=== PATIENT | male | born 1950 | race American Indian/Alaskan Native ===

== ENCOUNTER 2019-07-28 16:13 | Emergency (ER) | payer OTHER, MEDICARE ==
[2019-07-28] MEDS ORDERED: diphenhydrAMINE 25 MG CAP PO ONE (20:01)
[2019-07-28] MEDS ORDERED: FAMOTIDINE 20 MG TAB PO ONE (20:01)
[2019-07-28] MEDS ORDERED: predniSONE 20 MG TAB PO ONE (20:01)
--- NOTE | 2019-07-28 20:11 | Emergency Department Report ---
ED Rash HPI - HPI Chief Complaint: Skin Rash Stated Complaint: RASH Time Seen by Provider: 07/28/19 20:00 Duration: 1 month intermittent Location: Neck, Upper Extremities, Lower Extremities Suspected Cause: Unknown Rash Symptoms: Yes Itching, No Facial Swelling, No Tongue/Oral Swelling, No Breathing Difficulties, No Choking Sensation, No Wheezing/Dyspnea, No Peeling, N o Blistering, No Fever, No Lightheaded, No Malaise, No Myalgias Severity: mild ED Review of Systems ROS: Stated complaint: RASH Other details as noted in HPI Constitutional: denies: chills, fever Eyes: denies: eye pain, eye discharge, vision change ENT: denies: ear pain, throat pain Respiratory: denies: cough, shortness of breath, wheezing Cardiovascular: denies: chest pain, palpitations Endocrine: no symptoms reported Gastrointestinal: denies: abdominal pain, nausea, vomiting, diarrhea Genitourinary: as per HPI Musculoskeletal: denies: back pain, joint swelling, arthralgia Skin: rash, pruritus. denies: lesions Neurological: denies: headache, weakness, paresthesias Psychiatric: denies: anxiety, depression Hematological/Lymphatic: denies: easy bleeding, easy bruising ED Past Medical Hx - Past Medical History Previous Medical History?: Yes Hx Hypertension: Yes Hx CVA: Yes Hx Congestive Heart Failure: No Hx Diabetes: No Hx Renal Disease: No Hx Arthritis: No Hx Seizures: No Hx Asthma: No Hx COPD: No Hx HIV: No - Surgical History Past Surgical History?: Yes Hx Pacemaker: No Additional Surgical History: secretion duct surgery - Social History Smoking Status: Never Smoker - Medications Home Medications: Home Medications Medication Instructions Recorded Confirmed Last Taken Type Famotidine [Pepcid] 20 mg PO BID 7 Days #14 tablet 07/28/19 Unknown Rx Triamcinolone Aceton 0.1% (Nf) 1 applic TP BID #1 tube 07/28/19 Unknown Rx [Kenalog (NF)] amLODIPine 5 mg PO DAILY #30 tab 07/28/19 Unknown Rx diphenhydrAMINE [Benadryl CAP] 25 mg PO Q8HR PRN #30 capsule 07/28/19 Unknown Rx predniSONE [Deltasone] 40 mg PO QDAY 5 Days #10 tab 07/28/19 Unknown Rx Rash Exam - Exam General: Vital signs noted. No distress. Alert and acting appropriately. HEENT: No Periorbital Edema, No Conjuctival Injection, No Chemosis, No Perioral Edema, No Tongue Edema, No Uvular Edema, No Compromised Airway, No Drooling Lungs: Yes Good Air Exchange (Normal Breath Sounds), No Wheezes, No Ronchi, No Stridor, No Cough, No Labored Respirations, No Retractions, No Use of Accessory Muscles, No Other Abnormal Lung Sounds Heart: Yes Regular, No Murmur Skin: Yes Urticarial Rash (dry flaky rash ), Yes Erythema, No Maculopapular Rash, No Morbilliform rash, No Bulla(e), No Excoriations, No Weeping, No Tenderness, No Edema, No Encrustations Other: Positive: Abdomen Normal, Neurologic Normal, Musculoskeletal Normal ED Course Vital Signs 07/28/19 18:24 Temperature 98.4 F Pulse Rate 61 Respiratory 18 Rate Blood Pressure 180/105 [Left] Blood Pressure 181/106 [Right] O2 Sat by Pulse 98 Oximetry ED Medical Decision Making - Medical Decision Making This is a contact dermatitis, patient works on [employer] team, states rash intermittent, worsened by performing job duties, states he wears gloves intermittently but sometimes dryness and [place] wor[place] Primary symptom is itch and itching and dry skin, previous treatment or alcohol and lotion. Patient denies history of asthma or bronchitis. There is no shortness of breath, nausea vomiting, no fever chills. Patient does have a history of chronic hypertension states he had not had his meds in 2 months. Patient denies hypertension symptoms today there is no headache, dizziness, chest pain, shortness of breath, nausea vomiting or diaphoresis. Patient is alert and oriented x3 ambulatory with steady gait patient will be DC'd to home with prescriptions. To home via POV and . Patient will follow-up with primary care in the next 1 to 2 days he was advised to take BP medicines as prescribed we will refill amlodipine as per history at this time. Critical care attestation.: If time is entered above; I have spent that time in minutes in the direct care of this critically ill patient, excluding procedure time. ED Disposition Clinical Impression: Contact dermatitis Qualifiers: Contact dermatitis type: allergic Contact dermatitis trigger: unspecified trigger Qualified Code(s): L23.9 - Allergic contact dermatitis, unspecified cause Disposition: DC-01 TO HOME OR SELFCARE Is pt being admited?: No Does the pt Need Aspirin: No Condition: Stable Instructions: Contact Dermatitis (ED) Prescriptions: amLODIPine 5 mg PO DAILY #30 tab diphenhydrAMINE [Benadryl CAP] 25 mg PO Q8HR PRN #30 capsule PRN Reason: Itching predniSONE [Deltasone] 40 mg PO QDAY 5 Days #10 tab Triamcinolone Aceton 0.1% (Nf) [Kenalog (NF)] 1 applic TP BID #1 tube Famotidine [Pepcid] 20 mg PO BID 7 Days #14 tablet Referrals: JAN FINNEY MD [Staff Physician] - 3-5 Days Forms: Work/School Release Form(ED) Time of Disposition: 20:23
[2019-07-28 20:42] VITALS: BP 165/105
== END 2019-07-28 20:41 | disposition home or self-care (01) ==
LOC: ED 16:13
DX: L25.9 Unspecified contact dermatitis, unspecified cause (principal); I10 Essential (primary) hypertension; Z86.73 Personal history of transient ischemic attack (TIA), and cerebral infarction without residual deficits; Z98.890 Other specified postprocedural states; Z79.899 Other long term (current) drug therapy
CPT/HCPCS: 99282; J7512

== ENCOUNTER 2021-06-15 05:45 | Day surgery (SDC) | payer MEDICARE ==
[2021-06-15] MEDS ORDERED: ceFAZolin/STERILE WATER 2 GM/20 ML SYRINGE IV NR (07:15)
[2021-06-15 07:25] LABS: Hematocrit 35.8 % (35.5-45.6); Hemoglobin 11.8 gm/dl (11.8-15.2); Mean Corpuscular HGB Conc 33 % (32-34); Mean Corpuscular Volume 97 fl (84-94); Platelet Count 239 K/mm3 (140-440); Red Blood Count 3.67 M/mm3 (3.65-5.03); Red Cell Distribution Width 13.2 % (13.2-15.2)
[2021-06-15] MEDS ORDERED: LACTATED RINGERS 1,000 ML ONE (07:26)
[2021-06-15] MEDS ORDERED: ceFAZolin/Water 2 GM/20 ML 2 GM/20 ML SYRINGE IV ONE (07:27)
[2021-06-15 07:45] LABS: Alanine Aminotransferase 12 units/L (7-56); Albumin 3.9 g/dL (3.9-5); BUN/Creatinine Ratio 20; Blood Urea Nitrogen 24 mg/dL (9-20); Hemolysis Index 12
[2021-06-15] MEDS ORDERED: HYDROmorphone 1 MG/1 ML INJ IV PRN (07:48)
[2021-06-15] MEDS ORDERED: ONDANSETRON 4 MG/2 ML INJ IV PRN (07:48)
[2021-06-15] MEDS ORDERED: METOPROLOL TARTRATE 25 MG TAB PO NR (07:49)
[2021-06-15 07:55] LABS: INR 0.94 (0.87-1.13)
[2021-06-15 07:56] LABS: Partial Thromboplastin Time 31.5 Sec. (24.2-36.6)
[2021-06-15] MEDS ORDERED: LACTATED RINGERS 1,000 ML IV SCH (08:00)
--- NOTE | 2021-06-15 08:03 | Anesthesia Day of Surgery ---
Anesthesia Day of Surgery - Day of Surgery Patient Examined: Yes Patient H&P Reviewed: Yes Patient is NPO: Yes Beta Blockers: Yes
--- NOTE | 2021-06-15 08:13 | Anesthesia Consultation ---
Anesthesia Consult and Med Hx Date of service: 06/15/21 - Airway Anesthetic Teeth Evaluation: Edentulous ROM Head & Neck: Adequate Mental/Hyoid Distance: Adequate Mallampati Class: Class III Intubation Access Assessment: Probably Good - Pre-Operative Health Status ASA Pre-Surgery Classification: ASA3 Proposed Anesthetic Plan: General - Pulmonary Hx Asthma: No COPD: No Hx Pneumonia: Yes - Cardiovascular System Hx Hypertension: Yes Hx Heart Attack/AMI: Yes Hx Cardia Arrhythmia: Yes (Afib) Hx Pacemaker: No - Central Nervous System Hx Neuromuscular Disorder: No (Does not ambulate) Hx Seizures: No CVA: Yes (NON VERBAL , RIGHT SIDED WEAKNESS) Hx Back Pain: Yes (LOW WITH SCIATICA) Hx Psychiatric Problems: Yes (HX PSYCHOSIS. Depression, schizophrenia) - Gastrointestinal Hx Gastroesophageal Reflux Disease: Yes (Rare) - Endocrine Hx Renal Disease: Yes (CLARA/hydro from stone) Hx End Stage Renal Disease: No Hx Thyroid Disease: No Hx Hypothyroidism: Yes - Hematic Hx Sickle Cell Disease: No - Other Systems Hx Cancer: No Hx Obesity: No - Additional Comments Anesthesia Medical History Comments: +Med clearance
[2021-06-15] MEDS ORDERED: MORPHINE 2 MG/1 ML INJ ONE (08:27)
[2021-06-15] MEDS ORDERED: MORPHINE 2 MG/1 ML INJ IV NR (08:30)
[2021-06-15] MEDS ORDERED: LIDOCAINE MPF (2%) 20 MG/1 ML VIAL 5 ML ONE (09:55)
[2021-06-15] MEDS ORDERED: propofoL 200 MG/20 ML VIAL IV ONE ×2 (09:55→10:34)
[2021-06-15] MEDS ORDERED: PHENYLEPHRINE/NS 1,000 MCG/10 ML SYRINGE (OR USE) IV ONE (10:22)
[2021-06-15] MEDS ORDERED: ONDANSETRON 4 MG/2 ML INJ ONE (10:22)
[2021-06-15] MEDS ORDERED: dexAMETHasone 20 MG/5 ML VIAL ONE (10:22)
[2021-06-15] MEDS ORDERED: fentaNYL 100 MCG/2 ML INJ ONE (10:30)
[2021-06-15] MEDS ORDERED: WATER FOR IRRIG STERILE 1,500 ML BOTTLE IR ONE (10:34)
[2021-06-15] MEDS ORDERED: WATER FOR IRRIG STERILE 2000 ML IR ONE (10:34)
[2021-06-15] MEDS ORDERED: HYDROmorphone 1 MG/1 ML INJ ONE (10:41)
--- NOTE | 2021-06-15 11:13 | Short Stay Summary ---
Short Stay Documentation Date of service: 06/15/21 - History H&P: obtained from office - Allergies and Medications Current Medications: Allergies No Known Allergies Allergy (Verified 12/25/15 22:45) Home Medications Medication Instructions Recorded Confirmed Last Taken Type Apixaban [Eliquis] 5 mg PO BID 06/08/21 06/15/21 06/11/21 09:00 History Aspirin [Vazalore] 81 mg PO DAILY 06/08/21 06/15/21 06/11/21 09:00 History AtorvaSTATin [Lipitor] 40 mg PO QHS 06/08/21 06/15/21 06/14/21 19:00 History Docusate Sodium [Colace] 100 mg PO BID 06/08/21 06/15/21 06/14/21 17:00 History Levothyroxine [Synthroid] 125 mcg PO QAM 06/08/21 06/15/21 06/15/21 06:00 History Metoprolol [Lopressor] 25 mg PO DAILY 06/08/21 06/15/21 06/15/21 08:30 History Oxycodone HCl/Acetaminophen 1 each PO Q6HR PRN 06/08/21 06/08/21 Unknown History [Percocet 2.5/325 mg] QUEtiapine [SEROquel] 25 mg PO QHS 06/08/21 06/15/21 06/14/21 19:00 History amantadine HCL [Amantadine] 100 mg PO DAILY 06/08/21 06/15/21 06/14/21 09:00 History Active Medications Hydromorphone HCl (Hydromorphone 1 Mg/1 Ml Inj) 0.5 mg IV Q10MIN PRN PRN Reason: Pain , Severe (7-10) Stop: 06/15/21 20:00 Hydromorphone HCl (Hydromorphone 1 Mg/1 Ml Inj) 0.25 mg IV Q10MIN PRN PRN Reason: Pain, Moderate (4-6) Stop: 06/15/21 20:00 Lactated Ringer's (Lactated Ringers) 1,000 mls @ 100 mls/hr IV DIRECT DEVIN Last Admin: 06/15/21 08:30 Dose: 100 mls/hr - Brief post op/procedure progress note Date of procedure: 06/08/21 Pre-op diagnosis: rt renal stone Post-op diagnosis: other (urethral stricture) Procedure: cysto, dviu, rt stent, rt rpg-internal string Anesthesia: MO Surgeon: FAISAL GUERRERO Condition: stable - Disposition Condition at discharge: Stable Disposition: 01 HOME / SELF CARE / HOMELESS Short Stay Discharge Plan Follow up with: PRIMARY CARE, [Primary Care Provider] - 7 Days
[2021-06-15] MEDS: HYDROmorphone 1 MG/1 ML INJ IV PRN ×2 (11:48→11:58)
--- NOTE | 2021-06-15 12:03 | Fluoroscopy Report ---
FLUOROSCOPY RETROGRADE UROGRAPHY INDICATION: RIGHT HYDRONEPHROSIS RIGHT RENAL STONE. COMPARISON: None. IMPRESSION: 40 seconds of fluoroscopy time was provided by radiology during retrograde urography. 4 fluoroscopic images of the abdomen are presented demonstrating right ureteral stent placement which a ppears in adequate position on the final image. Please correlate with the procedural report by urolog y. Signer Name: Jaylen Arthur Jr, MD Signed: 06/15/2021 11:59 AM Workstation Name: [id number]
--- NOTE | 2021-06-15 12:13 | Operative Report ---
DATE OF SURGERY: 06/15/2021 PREOPERATIVE DIAGNOSES: 1. Right 2 cm stone. 2. Hydronephrosis. POSTOPERATIVE DIAGNOSES: 1. Right 2 cm stone. 2. Hydronephrosis. 3. Urethral stricture. PROCEDURES: Cystoscopy, direct vision internal urethrotomy, right retrograde pyelogram, right double-J stent placement with an internal string (6-Liberian 24 cm). SURGEON: Carl Shah MD ANESTHESIA: General. ESTIMATED BLOOD LOSS: Minimal. FLUIDS: Crystalloid. COMPLICATIONS: No complications. This is a staged procedure. INDICATIONS: This is a 71-year-old gentleman from [place], who originally was seen at [place], was found to have a kidney stone. Discussed options. Discussed it with his . He has a history of dementia. They agreed to proceed with surgical intervention. DESCRIPTION OF PROCEDURE: The patient was taken to the operative suite, placed in a supine position. After adequate general anesthesia, placed in the dorsal lithotomy position, prepped and draped in a sterile fashion. Ureteroscopy was performed. Obvious tight bulbar stricture could be appreciated. 0.035 Glidewire was placed. Cold knife was used to make an incision at the 12 o'clock position to advance the scope into the bladder. Prostate, mild trilobar obstruction. Bladder, diffuse trabeculation and irritation. Was unable to visualize the left ureteral orifice due to edema. The right one, after multiple attempts, I was able to shoot a retrograde, which showed some J-hooking and a possible distal stone. He has an obvious 2 cm renal stone. A 0.035 Glidewire was placed. Due to the edema, ureteroscopy was not attempted. A 6-Liberian 24 cm double-J stent with an internal string was left indwelling. Bladder was drained. Rectal exam was benign. He was extubated and taken to recovery room. He will go home on [place] and [place]. TID: [id number] RECEIPT: [id number] [facility]/[place]ATHA
[2021-06-15 13:28] VITALS: BP 159/98
--- NOTE | 2021-06-15 16:52 | Post Anesthesia Evaluation ---
- Post Anesthesia Evaluation Patient Participated: Yes Airway Patent: Yes Stable Respiratory Function: Yes Nausea/Vomiting: No Temp > 96.8F: Yes Pain Manageable: Yes Adequeate Hydration: Yes Anesthesia Complications: No Block Receding Appropriately: Not Applicable Patient on Ventilator: No
== END 2021-06-15 14:25 | disposition home or self-care (01) ==
LOC: OR 05:45
PROVIDERS: ATTEND Urology
DX: N13.2 Hydronephrosis with renal and ureteral calculous obstruction (principal); N35.919 Unspecified urethral stricture, male, unspecified site; I10 Essential (primary) hypertension; E78.00 Pure hypercholesterolemia, unspecified; I48.91 Unspecified atrial fibrillation; K21.9 Gastro-esophageal reflux disease without esophagitis; N39.0 Urinary tract infection, site not specified; E03.9 Hypothyroidism, unspecified; M19.90 Unspecified osteoarthritis, unspecified site; F32.9 Major depressive disorder, single episode, unspecified; Z79.899 Other long term (current) drug therapy; Z79.82 Long term (current) use of aspirin; Z87.01 Personal history of pneumonia (recurrent); Z86.2 Personal history of diseases of the blood and blood-forming organs and certain disorders involving the immune mechanism; Z86.73 Personal history of transient ischemic attack (TIA), and cerebral infarction without residual deficits
CPT/HCPCS: 36415; 52276; 52332; 74420; 80053; 85027; 85610; 85730; C1726; C1758; C1769; C2617; J0690; J1100; J1170; J2270; J2370; J2405; J2704; J3010; J3490; J7120; Q9967

== ENCOUNTER 2021-07-07 05:51 | Day surgery (SDC) | payer MEDICARE ==
[2021-07-07] MEDS ORDERED: LACTATED RINGERS 1,000 ML IV SCH (06:00)
[2021-07-07] MEDS ORDERED: ceFAZolin/Water 2 GM/20 ML 2 GM/20 ML SYRINGE IV ONE (06:53)
[2021-07-07] MEDS ORDERED: ceFAZolin/STERILE WATER 2 GM/20 ML SYRINGE IV NR (07:00)
[2021-07-07] MEDS ORDERED: propofoL 200 MG/20 ML VIAL IV ONE (07:26)
[2021-07-07] MEDS ORDERED: LIDOCAINE MPF (2%) 20 MG/1 ML VIAL 5 ML ONE (07:27)
[2021-07-07] MEDS ORDERED: HYDROmorphone 1 MG/1 ML INJ ONE (07:27)
--- NOTE | 2021-07-07 07:35 | Anesthesia Consultation ---
Anesthesia Consult and Med Hx Date of service: 07/07/21 - Airway Anesthetic Teeth Evaluation: Edentulous ROM Head & Neck: Adequate Mental/Hyoid Distance: Adequate Mallampati Class: Class I Intubation Access Assessment: Good - Pre-Operative Health Status ASA Pre-Surgery Classification: ASA3 Proposed Anesthetic Plan: General - Pulmonary Hx Smoking: No Hx Respiratory Symptoms: No - Cardiovascular System Hx Hypertension: Yes Hx Heart Attack/AMI: Yes Hx Cardia Arrhythmia: Yes (Afib; last dose eliquis 07/02/21) Hx Pacemaker: No Hx Internal Defibrillator: No - Central Nervous System Hx Neuromuscular Disorder: No (non-ambulatory) 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
--- NOTE | 2021-07-07 07:36 | Anesthesia Day of Surgery ---
Anesthesia Day of Surgery - Day of Surgery Patient Examined: Yes Patient H&P Reviewed: Yes Patient is NPO: Yes Beta Blockers: Yes (metoprolol yesterday)
[2021-07-07 07:40] LABS: INR 0.94 (0.87-1.13)
[2021-07-07 07:47] LABS: BUN/Creatinine Ratio 18; Blood Urea Nitrogen 21 mg/dL (9-20); Calcium 9.9 mg/dL (8.4-10.2); Hemolysis Index 27
[2021-07-07] MEDS ORDERED: PHENYLEPHRINE/NS 1,000 MCG/10 ML SYRINGE (OR USE) IV ONE (08:11)
--- NOTE | 2021-07-07 08:38 | Short Stay Summary ---
Short Stay Documentation Date of service: 07/07/21 - History H&P: obtained from office - Allergies and Medications Current Medications: Allergies No Known Allergies Allergy (Verified 12/25/15 22:45) Home Medications Medication Instructions Recorded Confirmed Last Taken Type Apixaban [Eliquis] 5 mg PO BID 06/08/21 06/30/21 07/02/21 History Aspirin [Vazalore] 81 mg PO DAILY 06/08/21 06/30/21 07/02/21 History AtorvaSTATin [Lipitor] 40 mg PO QHS 06/08/21 06/30/21 07/06/21 History Docusate Sodium [Colace] 100 mg PO BID 06/08/21 06/30/21 07/06/21 History Levothyroxine [Synthroid] 125 mcg PO QAM 06/08/21 06/30/21 06/15/21 06:00 History Metoprolol [Lopressor] 25 mg PO DAILY 06/08/21 06/30/21 07/06/21 History Oxycodone HCl/Acetaminophen 1 each PO Q6HR PRN 06/08/21 06/30/21 07/06/21 History [Percocet 2.5/325 mg] QUEtiapine [SEROquel] 25 mg PO QHS 06/08/21 06/30/21 07/06/21 History amantadine HCL [Amantadine] 100 mg PO DAILY 06/08/21 06/30/21 07/06/21 History Active Medications Cefazolin Sodium (Cefazolin/Sterile Water 2 Gm/20 Ml Syringe) 2 gm IV PREOP NR Stop: 07/07/21 21:00 Lactated Ringer's (Lactated Ringers) 1,000 mls @ 100 mls/hr IV DIRECT DEVIN Stop: 07/07/21 23:59 Last Admin: 07/07/21 07:00 Dose: 100 mls/hr - Brief post op/procedure progress note Date of procedure: 07/07/21 Pre-op diagnosis: rt renal stone (indwelling stent) Post-op diagnosis: same Procedure: ESWL--stage Anesthesia: GETA Surgeon: FAISAL GUERRERO Estimated blood loss: none Pathology: none Condition: stable - Hospital course Hospital course: norco & post op info on chart - Disposition Condition at discharge: Stable Disposition: 01 HOME / SELF CARE / HOMELESS Short Stay Discharge Plan Follow up with: PRIMARY CARE, [Primary Care Provider] - 7 Days
--- NOTE | 2021-07-07 09:13 | Operative Report ---
DATE OF SURGERY: 07/07/2021 PREOPERATIVE DIAGNOSIS: Right renal stone, status post stent placement. POSTOPERATIVE DIAGNOSIS: Right renal stone, status post stent placement. PROCEDURE: Right extracorporal shockwave lithotripsy (staged procedure). SURGEON: Carl Shah MD ANESTHESIA: General. ESTIMATED BLOOD LOSS: Minimal. FLUIDS: Crystalloid. COMPLICATIONS: No complications. INDICATIONS: This patient is a 71-year-old gentleman found to have a 2.5 cm stone in the right kidney, underwent previous cystoscopy, DVIU and stent placement. He presents now for staged lithotripsy. Risks, benefits, complications were explained to the patient and his . DESCRIPTION OF PROCEDURE: The patient was taken to the operative suite, placed in a supine position. After adequate general anesthesia he was placed in a supine position. The stone was localized in 2 planes using fluoroscopy. Extracorporal shock wave lithotripsy was administered with a maximum kV of 8 and 2500 shocks. A 5-minute renal pause after 200 shocks. There was some fragmentation of his stone. He will require retreatment, but he tolerated the procedure well and was extubated and taken to recovery room. He will go home on [place] and follow up in the office. TID: [id number] RECEIPT: [id number] [facility]/MILA
[2021-07-07] MEDS ORDERED: HYDROcodone/Acetaminophen 7.5-325MG-15ML ORAL LIQD ONE (10:11)
[2021-07-07] MEDS ORDERED: HYDROcodone/Acetaminophen 7.5-325MG-15ML ORAL LIQD PO ONE (10:14)
--- NOTE | 2021-07-07 10:52 | Post Anesthesia Evaluation ---
- Post Anesthesia Evaluation Patient Participated: Yes Airway Patent: Yes Stable Respiratory Function: Yes Nausea/Vomiting: No Temp > 96.8F: Yes Pain Manageable: Yes Adequeate Hydration: Yes Anesthesia Complications: No
[2021-07-07 13:54] VITALS: BP 138/74
== END 2021-07-07 12:17 | disposition home or self-care (01) ==
LOC: OR 05:51
PROVIDERS: ATTEND Urology
DX: N20.0 Calculus of kidney (principal); E78.00 Pure hypercholesterolemia, unspecified; I48.91 Unspecified atrial fibrillation; I10 Essential (primary) hypertension; K21.9 Gastro-esophageal reflux disease without esophagitis; M19.90 Unspecified osteoarthritis, unspecified site; E03.9 Hypothyroidism, unspecified; F32.9 Major depressive disorder, single episode, unspecified; Z98.890 Other specified postprocedural states; Z79.899 Other long term (current) drug therapy; Z79.82 Long term (current) use of aspirin; Z87.01 Personal history of pneumonia (recurrent); Z87.440 Personal history of urinary (tract) infections; Z86.73 Personal history of transient ischemic attack (TIA), and cerebral infarction without residual deficits
CPT/HCPCS: 36415; 50590; 80048; 85610; 85730; J0690; J1170; J2370; J2704; J3490; J7120

== ENCOUNTER 2021-08-04 06:15 | Day surgery (SDC) | payer MEDICARE ==
[2021-08-04] MEDS ORDERED: LACTATED RINGERS 1,000 ML ONE (07:15)
[2021-08-04] MEDS ORDERED: HYDROmorphone 1 MG/1 ML INJ IV PRN ×2 (08:01)
--- NOTE | 2021-08-04 08:03 | Anesthesia Day of Surgery ---
Anesthesia Day of Surgery - Day of Surgery Patient Examined: Yes Patient H&P Reviewed: Yes Patient is NPO: Yes
--- NOTE | 2021-08-04 08:04 | Anesthesia Consultation ---
Anesthesia Consult and Med Hx Date of service: 08/04/21 - Airway Anesthetic Teeth Evaluation: Edentulous ROM Head & Neck: Adequate Mental/Hyoid Distance: Adequate Mallampati Class: Class II Intubation Access Assessment: Good - Pre-Operative Health Status ASA Pre-Surgery Classification: ASA3 Proposed Anesthetic Plan: General - Pulmonary Hx Smoking: No Hx Respiratory Symptoms: No Hx Pneumonia: Yes (RESOLVED) Hx Sleep Apnea: No (ANALISA PRE SCREEN HIGH RISK) - Cardiovascular System Hx Hypertension: Yes Hx Heart Attack/AMI: Yes Hx Cardia Arrhythmia: Yes (Afib) - Central Nervous System Hx Neuromuscular Disorder: No (non-ambulatory) Hx Seizures: No 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 Had med clearance previously. present at [facility]
[2021-08-04 08:19] LABS: INR 0.92 (0.87-1.13); Partial Thromboplastin Time 29.3 Sec. (24.2-36.6)
[2021-08-04] MEDS ORDERED: MIDAZOLAM 2 MG/2 ML INJ IV NR (09:00)
[2021-08-04] MEDS ORDERED: ONDANSETRON 4 MG/2 ML INJ IV PRN (09:00)
[2021-08-04] MEDS ORDERED: LACTATED RINGERS 1,000 ML IV SCH (09:00)
[2021-08-04] MEDS ORDERED: ceFAZolin/STERILE WATER 2 GM/20 ML SYRINGE IV NR (09:00)
[2021-08-04] MEDS ORDERED: ONDANSETRON 4 MG/2 ML INJ ONE (09:47)
[2021-08-04] MEDS ORDERED: LIDOCAINE MPF (2%) 20 MG/1 ML VIAL 5 ML ONE (09:47)
[2021-08-04] MEDS ORDERED: propofoL 200 MG/20 ML VIAL IV ONE (09:48)
[2021-08-04] MEDS ORDERED: fentaNYL 100 MCG/2 ML INJ ONE (09:48)
--- NOTE | 2021-08-04 10:18 | Post Operative Note ---
Date of procedure: 08/04/21 Pre-op diagnosis: rk stone Post-op diagnosis: same Findings: r stone Procedure: r eswl Anesthesia: MO Surgeon: DANNY SPICER Estimated blood loss: none Pathology: none Condition: stable Disposition: PACU
--- NOTE | 2021-08-04 10:19 | Discharge Summary ---
Short Stay Discharge Plan Activity: other (no straining ) Weight Bearing Status: Full Weight Bearing Diet: low fat, low cholesterol, low salt Special Instructions: other (inc fluids ) Follow up with: PRIMARY CARE, [Primary Care Provider] - 7 Days FAISAL GUERRERO MD [Staff Physician] - 7 Days
[2021-08-04] MEDS ORDERED: ePHEDrine SULFATE 50 MG/1 ML INJ ONE (10:23)
[2021-08-04] MEDS ORDERED: HYDROcodone/Acetaminophen 7.5-325MG-15ML ORAL LIQD ONE (11:48)
[2021-08-04] MEDS ORDERED: HYDROcodone/Acetaminophen 7.5-325MG-15ML ORAL LIQD PO PRN (11:52)
--- NOTE | 2021-08-04 12:45 | Operative Report ---
DATE OF SURGERY: 08/04/2021 PREOPERATIVE DIAGNOSES: Very large right renal stone, previous double-J and lithotripsy. POSTOPERATIVE DIAGNOSES: Very large right renal stone, previous double-J and lithotripsy. PROCEDURE: Second stage lithotripsy. SURGEON: Howard Agrawal MD ANESTHESIA: General. FINDINGS: This is a gentleman with huge stone. He now presents for second stage lithotripsy. I suspect he will need multiple procedures. The stone is quite large. DESCRIPTION OF PROCEDURE: The patient was brought to the operating room and placed on the operating table. Following induction of anesthesia, stone was easily localized. Shocks were begun at 1 kV, increased to maximum of 7 kV. A total of 2500 shocks were given. The patient tolerated the procedure well and brought to recovery room in stable condition. Family notified that he will need multiple procedures including possible percutaneous nephrolithotomy. TID: [id number] RECEIPT: [id number] CAROLYNE/SUSAN
[2021-08-04 14:15] VITALS: BP 135/82
== END 2021-08-04 12:10 ==
LOC: OR 06:15
PROVIDERS: ATTEND Urology
DX: N20.0 Calculus of kidney (principal); I48.20 Chronic atrial fibrillation, unspecified; I10 Essential (primary) hypertension; E78.00 Pure hypercholesterolemia, unspecified; K21.9 Gastro-esophageal reflux disease without esophagitis; F32.9 Major depressive disorder, single episode, unspecified; Z79.899 Other long term (current) drug therapy; Z79.82 Long term (current) use of aspirin; Z87.01 Personal history of pneumonia (recurrent); Z87.440 Personal history of urinary (tract) infections; Z98.890 Other specified postprocedural states; Z86.73 Personal history of transient ischemic attack (TIA), and cerebral infarction without residual deficits
CPT/HCPCS: 36415; 50590; 85610; 85730; J0690; J2250; J2405; J2704; J3010; J3490; J7120

== ENCOUNTER 2021-09-18 17:55 | Emergency (ER) | payer MEDICARE ==
--- NOTE | 2021-09-18 18:45 | Emergency Department Report ---
ED General Adult HPI - General Chief complaint: Recheck/Abnormal Lab/Rx Stated complaint: INFECTED SURGERY SITE Time Seen by Provider: 09/18/21 18:18 Source: patient, EMS Mode of arrival: Stretcher Limitations: No Limitations - History of Present Illness Initial comments: Patient is a 71-year-old male sent from nursing facility for evaluation of swelling around his nephrostomy tube site. He underwent lithotripsy, stenting and nephrostomy tube placement on 09/[address] Shah. senior living staff noted swelling around the site today. EMS notes drainage around the site and states tube does not appear to be draining. - Related Data Home Medications Medication Instructions Recorded Confirmed Last Taken Apixaban [Eliquis] 5 mg PO BID 06/08/21 09/06/21 08/29/21 Aspirin [Vazalore] 81 mg PO DAILY 06/08/21 09/06/21 08/29/21 Docusate Sodium [Colace CAP] 100 mg PO BID 06/08/21 09/06/21 09/05/21 QUEtiapine [SEROquel] 25 mg PO Q48H 06/08/21 09/06/21 09/05/21 Acetaminophen [Tylenol] 325 mg PO Q6H PRN 09/06/21 09/06/21 Unknown Docusate Sodium [Colace CAP] 100 mg PO BID PRN 09/06/21 09/06/21 Unknown Previous Rx's Medication Instructions Recorded Last Taken Type ALBUTEROL NEB's [Proventil 0.083% 2.5 mg IH Q4HRT PRN nebu 09/09/21 Unknown Rx NEBS] AtorvaSTATin [Lipitor] 40 mg PO QHS tablet 09/09/21 Unknown Rx HYDROmorphone [Dilaudid] 0.5 mg IV Q8H PRN syringe 09/09/21 Unknown Rx Levothyroxine [Synthroid] 125 mcg PO DAILY@0600 tablet 09/09/21 Unknown Rx Metoprolol [Lopressor TAB] 25 mg PO DAILY tablet 09/09/21 Unknown Rx amantadine [Symmetrel] 100 mg PO DAILY capsule 09/09/21 Unknown Rx Allergies Allergy/AdvReac Type Severity Reaction Status Date / Time No Known Allergies Allergy Verified 09/18/21 18:08 ED Review of Systems ROS: Stated complaint: INFECTED SURGERY SITE Other details as noted in HPI Constitutional: denies: chills, fever Respiratory: denies: cough, shortness of breath, wheezing Cardiovascular: denies: chest pain, palpitations Gastrointestinal: denies: nausea, vomiting Skin: denies: rash, lesions Neurological: denies: headache, weakness Hematological/Lymphatic: denies: easy bleeding, easy bruising ED Past Medical Hx - Past Medical History Hx Hypertension: Yes Hx CVA: Yes Hx Heart Attack/AMI: Yes Hx Congestive Heart Failure: No Hx GERD: Yes (RARE) Hx Renal Disease: Yes (Stones) Hx Sickle Cell Disease: No Hx Arthritis: Yes (JOINT PAIN) Hx Seizures: No Hx Kidney Stones: Yes Additional medical history: aphasia - Surgical History Past Surgical History?: Yes Additional Surgical History: secretion duct surgery - Social History Smoking Status: Unknown if ever smoked - Medications Home Medications: Home Medications Medication Instructions Recorded Confirmed Last Taken Type Apixaban [Eliquis] 5 mg PO BID 06/08/21 09/06/21 08/29/21 History Aspirin [Vazalore] 81 mg PO DAILY 06/08/21 09/06/21 08/29/21 History Docusate Sodium [Colace CAP] 100 mg PO BID 06/08/21 09/06/21 09/05/21 History QUEtiapine [SEROquel] 25 mg PO Q48H 06/08/21 09/06/21 09/05/21 History Acetaminophen [Tylenol] 325 mg PO Q6H PRN 09/06/21 09/06/21 Unknown History Docusate Sodium [Colace CAP] 100 mg PO BID PRN 09/06/21 09/06/21 Unknown History ALBUTEROL NEB's [Proventil 0.083% 2.5 mg IH Q4HRT PRN nebu 09/09/21 Unknown Rx NEBS] AtorvaSTATin [Lipitor] 40 mg PO QHS tablet 09/09/21 Unknown Rx HYDROmorphone [Dilaudid] 0.5 mg IV Q8H PRN syringe 09/09/21 Unknown Rx Levothyroxine [Synthroid] 125 mcg PO DAILY@0600 tablet 09/09/21 Unknown Rx Metoprolol [Lopressor TAB] 25 mg PO DAILY tablet 09/09/21 Unknown Rx amantadine [Symmetrel] 100 mg PO DAILY capsule 09/09/21 Unknown Rx ED Physical Exam - General Limitations: Altered Mental Status (History of CVA, at baseline) General appearance: alert, in no apparent distress - Head Head exam: Present: atraumatic, normocephalic - Eye Eye exam: Present: normal appearance, EOMI - Respiratory Respiratory exam: Present: normal lung sounds bilaterally. Absent: respiratory distress - Cardiovascular Cardiovascular Exam: Present: regular rate, normal rhythm, normal heart sounds - GI/Abdominal GI/Abdominal exam: Present: soft. Absent: distended, tenderness - Rectal Rectal exam: Present: deferred - Extremities Exam Extremities exam: Present: normal inspection - Back Exam Back exam: Present: other (Right nephrostomy tube in place with swelling around the site with associated tenderness.) - Neurological Exam Neurological exam: Present: alert, CN II-XII intact - Skin Skin exam: Present: warm, dry, intact ED Course Vital Signs 09/18/21 09/18/21 18:31 21:24 Temperature 98.9 F Pulse Rate 60 88 Respiratory 16 15 Rate Blood Pressure 146/90 Blood Pressure 130/77 [Left] O2 Sat by Pulse 100 99 Oximetry ED Medical Decision Making - Lab Data Result diagrams: 09/18/21 18:53 09/18/21 18:53 - Medical Decision Making Labs reviewed. WBC count within normal range. Serum potassium 3.3. CT abdomen pelvis reveals ureteral stent in place. There is soft tissue edema noted around the nephrostomy site however no fluid collection visualized. On physical examination there is swelling noted however no erythema or warmth noted to the area. Infection unlikely. Will discharge back to nursing facility. Follow-up with urology. Critical care attestation.: If time is entered above; I have spent that time in minutes in the direct care of this critically ill patient, excluding procedure time. ED Disposition Clinical Impression: Swelling of surgical site Disposition: [facility] Is pt being admited?: No Does the pt Need Aspirin: No Condition: Stable Time of Disposition: 21:45
[2021-09-18 19:37] LABS: Basophils # (Auto) 0.1 K/mm3 (0.0-0.1); Basophils % (Auto) 0.9 % (0.0-1.8); Eosinophils # (Auto) 0.3 K/mm3 (0.0-0.4); Eosinophils % (Auto) 2.8 % (0.0-4.3); Hematocrit 33.2 % (35.5-45.6); Hemoglobin 10.9 gm/dl (11.8-15.2); Lymphocytes # (Auto) 1.4 K/mm3 (1.2-5.4); Lymphocytes % (Auto) 14.3 % (13.4-35.0); Mean Corpuscular HGB Conc 33 % (32-34); Mean Corpuscular Volume 97 fl (84-94); Monocytes % (Auto) 10.1 % (0.0-7.3); Platelet Count 336 K/mm3 (140-440); Red Blood Count 3.43 M/mm3 (3.65-5.03); Red Cell Distribution Width 13.7 % (13.2-15.2)
[2021-09-18 19:48] LABS: BUN/Creatinine Ratio 11; Blood Urea Nitrogen 12 mg/dL (9-20); Calcium 8.8 mg/dL (8.4-10.2); Hemolysis Index 0
--- NOTE | 2021-09-18 21:37 | Cat Scan Report ---
CT abdomen pelvis wo con INDICATION / CLINICAL INFORMATION: Right flank pain with swelling around the right nephrostomy tube site TECHNIQUE: CT abdomen pelvis without contrast All CT scans at this location are performed using CT dose reductio n for ALARA by means of automated exposure control. COMPARISON: None available. FINDINGS: Abdomen and pelvis: There is a percutaneous nephrostomy access with distal double-J loop that termina gustabo within the urinary bladder. There is also an indwelling right double-J ureteral stent that appear s to be in good position. There is severe right hydronephrosis with innumerable calculi along the dependent portion of the righ t collecting system and renal pelvis. Several tiny calculi are present within the left kidney but no left hydronephrosis. The gallbladder i s contracted. The liver, spleen, pancreas are unremarkable within limits of the noncontrast technique . The urinary bladder wall is mildly thickened. Moderate stool burden throughout the colon. Review th e lower chest demonstrates a small pericardial effusion and tiny left pleural effusion. IMPRESSION: The right double-J ureteral stent remains in good position. There is also an external tricia nt that terminates in the urinary bladder. There is moderate right hydroureteronephrosis with innumer able calculi identified along the dependent portion of the right renal collecting system. There is so me soft tissue edema along the right flank near the nephrostomy access however no obvious drainable f luid collection is identified within the limits of the noncontrast technique. Signer Name: Mathew Parks MD Signed: 09/18/2021 9:32 PM Workstation Name: [id number]
[2021-09-18 23:26] VITALS: BP 122/76
== END 2021-09-18 23:27 ==
LOC: ED 17:55
DX: T81.49XA Infection following a procedure, other surgical site, initial encounter (principal); Z86.73 Personal history of transient ischemic attack (TIA), and cerebral infarction without residual deficits; N28.9 Disorder of kidney and ureter, unspecified; K21.9 Gastro-esophageal reflux disease without esophagitis; M19.90 Unspecified osteoarthritis, unspecified site; I10 Essential (primary) hypertension; I21.9 Acute myocardial infarction, unspecified; Z98.890 Other specified postprocedural states; Z79.899 Other long term (current) drug therapy
CPT/HCPCS: 36415; 74176; 80048; 85025; 99284